=== PATIENT | female | born 1995 | race Caucasian/White ===

== ENCOUNTER 2016-09-11 20:49 | Emergency (ER) | payer OTHER ==
--- NOTE | 2016-09-11 20:54 | EDPHY ---
H & P HPI/ROS: Chief Complaint: Right jaw pain HPI: Patient is presenting with worsening right jaw pain and cheek swelling the past several days. Patient was seen at [facility] 2 days ago and had a negative strep and negative rapid mono test but has had worsening pain behind the angle of her jaw and over her right jaw the last 2 days. No skin rash. No fevers or chills. No sore throat. No difficulty swallowing or breathing. No cough. No headache. No nausea or vomiting. No history of the same. ROS: 10 point Review of Systems is negative except as noted in the HPI. PMH: None Medications: None Allergies: None Social History: No smoking, occasional alcohol, no recreational drug use Family History: non-contributory Physical Exam: General: Awake, alert, no acute distress HEENT: Mouth: Normal oropharynx. No trismus. Normal dentition. Face: She has tenderness with mild swelling over her right parotid gland extending to the submandibular region without any significant swelling. There is no fluctuance. There is numbness no masses. She is tiny bit of postauricular lower soft tissue tenderness below the mastoid. She has no mastoid tenderness. She has no pain or trismus with opening of her jaw. There is no click. Ears: Normal TMs, normal auditory canals. Neck: She has slight anterior cervical lymphadenopathy. Skin: No rash Constitutional: Initial Vital Signs Temperature (C) 37.3 C 09/11/16 20:59 Heart Rate 97 09/11/16 20:59 Respiratory Rate 16 09/11/16 20:59 Blood Pressure 144/92 H 09/11/16 20:59 O2 Sat (%) 97 09/11/16 20:59 O2 Delivery Mode Room Air Allergies/Adverse Reactions: No Known Allergies Allergy (Unverified 09/11/16 20:58) Home Medications: Medication Instructions Recorded Iud 09/11/16 Medical Decision Making ED Course/Re-evaluation: 21-year-old with tenderness over right parotid and submandibular without any significant swelling. There is no signs of abscess. There is no skin rash or erythema. Oropharynx is negative. Does not have any other symptoms. Symptoms are consistent with an early parotitis. No indication for antibiotics at this time. Will discharge with some pain medicine for overnight. She is continue ibuprofen and acetaminophen. Follow up at [facility] [employer] in 2-3 days. Departure - Departure Disposition: Home, Routine, Self-Care Clinical Impression: Parotitis Condition: Good Instructions: Sialoadenitis (ED), Hydrocodone/Acetaminophen (By mouth) Additional Instructions: You may alternate ibuprofen with acetaminophen as needed for pain. Follow up with [facility] in 2-3 days for re-evaluation if symptoms are not improving. Return to the emergency department for worsening swelling, pain, difficulty swallowing or chewing, or any other concerns. Referrals: NONE *PRIMARY CARE P,. [Primary Care Provider] - As per Instructions [facility],. [Clinic] - As per Instructions
[2016-09-11 21:01] VITALS: BP 144/92; PULSE 97; RESP 16; TEMP 99.1; O2SAT 97
[2016-09-11] MEDS ORDERED: HYDROCOD/APAP 5/325 PREPACK#6 BTL TAKEHOME ONE (21:16)
== END 2016-09-11 21:31 | disposition home or self-care (01) ==
DX: K11.20 Sialoadenitis, unspecified (principal)